=== PATIENT | female | born 1955 | race Caucasian/White ===

== ENCOUNTER 2017-03-06 00:55 | Observation (INO) | payer MEDICARE ==
[~2017-03-06] VITALS: Ht 172.7 cm; Wt 146.5 kg
[2017-03-06] VITALS (7 sets, daily range): BP systolic 116–180; BP diastolic 62–97
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
[2017-03-06 01:26] LABS: CALCIUM 9.5 mg/dL (8.5-10.1); CREATININE 1.6 mg/dL (0.6-1.0); GFR 32.9; INR 0.9 (0.8-1.1); PROTHROMBIN TIME PATIENT 11.9 SEC (11.7-14.0)
[2017-03-06] MEDS ORDERED: ASPIRIN CHEWABLE 81 MG TABLET. PO ONE (01:30)
[2017-03-06] MEDS ORDERED: NITROGLYCERIN OINT 1 GM PACKET. TP ONE (01:30)
[2017-03-06] MEDS ORDERED: LABETALOL 20 MG/4 ML DISP.SYRIN. IVP ONE (01:30)
[2017-03-06 01:31] LABS: MAGNESIUM 2.1 mg/dL (1.8-2.4)
[2017-03-06] MEDS ORDERED: FUROSEMIDE 40 MG/4 ML VIAL. ONE (01:49)
[2017-03-06 01:52] LABS: BASO # 0.1 x10^3/uL (0.0-0.2); BASO % 1 % (0-3); EOS % 4 % (0-3); HEMATOCRIT 41.3 % (36.0-47.0); HEMOGLOBIN 13.6 g/dL (12.0-15.5); LYMPH # 3.4 x10^3/uL (1.0-4.8); LYMPH % 41 % (24-48); MEAN CORPUSCULAR HEMOGLOBIN 30 pg (25-35); MEAN CORPUSCULAR HGB CONC 33 g/dL (31-37); MEAN CORPUSCULAR VOLUME 92 fL (79-100); MONO % 8 % (0-9); NEUT % 47 % (31-73); PLATELET COUNT 349 x10^3/uL (140-400); RED BLOOD COUNT 4.52 x10^6/uL (3.50-5.40); RED CELL DISTRIBUTION WIDTH 14.4 % (11.5-14.5); WHITE BLOOD COUNT 8.2 x10^3/uL (4.0-11.0)
[2017-03-06] MEDS ORDERED: NITROGLYCERIN SUBLINGUAL 0.4 MG BOTTLE OF 25. SL PRN (02:00)
[2017-03-06] MEDS ORDERED: FUROSEMIDE 40 MG/4 ML VIAL. IVP ONE (02:00)
[2017-03-06] MEDS ORDERED: ONDANSETRON PF 4 MG/2 ML VIAL. IV PRN (02:00)
[2017-03-06] MEDS ORDERED: LABETALOL 20 MG/4 ML DISP.SYRIN. IVP PRN (02:15)
--- NOTE | 2017-03-06 06:22 | EKG ---
[facility] [address] [place] [address] Test Date: 2017-03-06 Test Time: 01:03:23 Pat Name: TRACI JONES Department: Room: [facility] Gender: F Translator Interpreter: : 1955 Requested By: DAVID GONZALEZ Order Number: [id number] Reading MD: Mary Lewis Measurements Intervals [place] Rate: 102 P: 117 RI: 186 QRS: -73 QRSD: 136 T: 61 QT: 378 QTc: 497 Interpretive Statements SINUS TACHYCARDIA ABNORMAL LEFT AXIS DEVIATION LEFT ANTERIOR FASCICULAR BLOCK RIGHT BUNDLE BRANCH BLOCK BIFASCICULAR BLOCK RVH WITH REPOLARIZATION ABNORMALITY Electronically Signed On 03-07-2017 16:14:55 CDT by Mary Lewis
--- NOTE | 2017-03-06 07:36 | RAD ---
Chest radiograph 03/06/2017 2:59 AM Indication: Chest pain Comparison: None available Technique: Single portable upright frontal view of the chest is provided. Findings: Cardiomediastinal silhouette is enlarged. No pleural effusions or pneumothorax. Minimal prominence of pulmonary vasculature. The lungs are clear. Osseous structures are normal. Clips are noted projecting over the right breast. Impression: Enlarged cardiomediastinal silhouette with minimal prominence of the pulmonary vasculature may be seen in mild congestive heart failure.
--- NOTE | 2017-03-06 08:53 | PDOC1 ---
History and Physical Date of Admission Date of Admission DATE: 03/06/17 TIME: 08:50 Identification/Chief Complaint Chief Complaint chest pain Problems: Source Source: Chart review, Patient History of Present Illness History of Present Illness Ms. Luis, is a 61 year old female admit from ER with chest pain. Overnight mod mid sternal chest pain, "fullness" pain improved overnight, now she also has a headache, and thinks she has a UTI as well she has been living here for 6 weeks, waiting on the of a grandchild, lives in [place], has had > 5 UTI infections this year, has not seen a urologist, no change in weight, but HTN problems, and some worsening dyspnea and exercise intolerance Past Medical History Cardiovascular: HTN Pulmonary: No pertinent hx GI: No pertinent hx Hepatobiliary: No pertinent hx Psych: No pertinent hx Renal/: Chronic renal insuff (3 baseline) Endocrine: Hyperthyroidism, Hypothyroidism Dermatology: No pertinent hx Family History Family History: Coronary Artery Disease, Heart Disease, Hypertension Family History: Parent Social History Smoke: No ALCOHOL: none Drugs: None Current Problem List Problem List Problems Medical Problems: (1) Chest pain Status: Acute (2) CHF (congestive heart failure) Status: Acute (3) Malignant hypertension Status: Acute Problems: Current Medications Current Medications Current Medications Nitroglycerin (Nitro-Bid Oint) 1 inch 1X ONCE TP Last administered on 01:22; Start 03/06/17 at 01:30; Stop 03/06/17 at 01:31; Status DC Aspirin (Children'S Aspirin) 324 mg 1X ONCE PO Last administered on 03/06/17 01:21; Start 03/06/17 at 01:30; Stop 03/06/17 at 01:31; Status DC Labetalol HCl (Normodyne) 20 mg 1X ONCE IVP Last administered on 03/06/17 01: 23; Start 03/06/17 at 01:30; Stop 03/06/17 at 01:31; Status DC Furosemide (Lasix) 40 mg 1X ONCE IVP Last administered on 03/06/17 02:00; Start 03/06/17 at 02:00; Stop 03/06/17 at 02:01; Status DC Ondansetron HCl (Zofran) 4 mg PRN Q8HRS PRN IV NAUSEA/VOMITING Last administered on 03/06/17 01:57; Start 03/06/17 at 02:00; Stop 03/07/17 at 01:59 Nitroglycerin (Nitrostat) 0.4 mg PRN Q5MIN PRN SL CHEST PAIN Last administered on 03/06/17 02:00; Start 03/06/17 at 02:00; Stop 03/07/17 at 01:59 Furosemide (Lasix) 40 mg STK-MED ONCE .ROUTE ; Start 03/06/17 at 01:49; Stop at 01:50; Status DC Labetalol HCl (Normodyne) 20 mg PRN Q4HRS PRN IVP BLOOD PRESSURE; Start at 02:15 Allergies Allergies: Coded Allergies: Iodinated Contrast- Oral and IV Dye (Verified Allergy, Intermediate, ) morphine (Verified Allergy, Intermediate, 03/06/17) ROS General: YES: Fatigue, Malaise, No: Chills, Night Sweats, Appetite, Other PSYCHOLOGICAL ROS: No: Anxiety, Behavioral Disorder, Concentration difficultie , Decreased libido, Depression, Disorientation, Hallucinations, Hostility, Irritablity, Memory difficulties, Mood Swings, Obsessive thoughts, Physical abuse, Sexual abuse, Sleep disturbances, Suicidal ideation, Other Eyes: No Blurry vision, No Decreased vision, No Double vision, No Dry eyes, No Excessive tearing, No Eye Pain, No Itchy Eyes, No Loss of vision, No Photophobia , No Scotomata, No Uses contacts, No Uses glasses, No Other HEENT: No: Heacaches, Visual Changes, Hearing change, Nasal congestion, Nasal discharge, Oral lesions, Sinus pain, Sore Throat, Epistaxis, Sneezing, Snoring, Tinnitus, Vertigo, Vocal changes, Other Respiratory: No: Cough, Hemoptysis, Orthopnea, Pleuritic Pain, Shortness of breath, SOB with excertion, Sputum Changes, Stridor, Tachypnea, Wheezing, Other Cardiovascular: No Chest Pain, No Palpitations, No Orthopnea, No Paroxysmal Noc. Dyspnea, No Edema, No Lt Headedness, No Other Gastrointestinal: Yes Nausea, Yes Abdominal Pain, No Vomiting, No Diarrhea, No Constipation, No Melena, No Hematochezia, No Other Genitourinary: No Dysuria, No Frequency, No Incontinence, No Hematuria, No Retention, No Discharge, No Urgency, No Pain, No Flank Pain, No Other, No , No , No , No , No , No , No Musculoskeletal: No Gait Disturbance, No Joint Pain, No Joint Swelling, No Muscle Pain, No Muscular Weakness, No Pain In:, No Swelling In:, No Other Neurological: No Behavorial Changes, No Bowel/Bladder ControlChng, No Confusion , No Dizziness, No Gait Disturbance, No Headaches, No Impaired Coord/balance, No Memory Loss, No Numbness/Tingling, No Seizures, No Speech Problems, No Tremors, No Visual Changes, No Weakness, No Other Skin: Yes Dry Skin, No Eczema, No Hair Changes, No Lumps, No Mole Changes, No Mottling, No Nail Changes, No Pruritus, No Rash, No Skin Lesion Changes, No Other, No Acne Physical Exam General: Alert, Oriented X3, Cooperative HEENT: Atraumatic, PERRLA Lungs: Clear to auscultation Heart: S1S2, no murmurs Abdomen: Normal bowel sounds, Soft (obese, min tender, ) Rectal Exam: not examined Extremities: No clubbing, Normal pulses, Other (tr edema) Skin: No breakdown Neuro: Normal tone, Sensation intact Psych/Mental Status: Mental status NL, Mood NL Vitals Vitals Vital Signs Date Time Temp Pulse Resp B/P (MAP) Pulse Ox O2 Delivery O2 Flow Rate FiO2 03/06/17 07:00 98.4 95 18 116/62 (80) 95 Room Air 98.4 Labs Labs Laboratory Tests Test 03/06/17 01:10 White Blood Count 8.2 x10^3/uL (4.0-11.0) Red Blood Count 4.52 x10^6/uL (3.50-5.40) Hemoglobin 13.6 g/dL (12.0-15.5) Hematocrit 41.3 % (36.0-47.0) Mean Corpuscular Volume 92 fL (79-100) Mean Corpuscular Hemoglobin 30 pg (25-35) Mean Corpuscular Hemoglobin Concent 33 g/dL (31-37) Red Cell Distribution Width 14.4 % (11.5-14.5) Platelet Count 349 x10^3/uL (140-400) Neutrophils (%) (Auto) 47 % (31-73) Lymphocytes (%) (Auto) 41 % (24-48) Monocytes (%) (Auto) 8 % (0-9) Eosinophils (%) (Auto) 4 % (0-3) Basophils (%) (Auto) 1 % (0-3) Neutrophils # (Auto) 3.8 x10^3uL (1.8-7.7) Lymphocytes # (Auto) 3.4 x10^3/uL (1.0-4.8) Monocytes # (Auto) 0.6 x10^3/uL (0.0-1.1) Eosinophils # (Auto) 0.3 x10^3/uL (0.0-0.7) Basophils # (Auto) 0.1 x10^3/uL (0.0-0.2) Prothrombin Time 11.9 SEC (11.7-14.0) Prothromb Time International Ratio 0.9 (0.8-1.1) Activated Partial Thromboplast Time 23 SEC (24-38) D-Dimer (Puja) 0.54 ug/mlFEU (0.00-0.50) Sodium Level 140 mmol/L (136-145) Potassium Level 4.0 mmol/L (3.5-5.1) Chloride Level 101 mmol/L (98-107) Carbon Dioxide Level 29 mmol/L (21-32) Anion Gap 10 (6-14) Blood Urea Nitrogen 17 mg/dL (7-20) Creatinine 1.6 mg/dL (0.6-1.0) Estimated GFR (Cockcroft-Gault) 32.9 Glucose Level 115 mg/dL (70-99) Calcium Level 9.5 mg/dL (8.5-10.1) Magnesium Level 2.1 mg/dL (1.8-2.4) Creatine Kinase 49 U/L (26-192) Troponin I Quantitative < 0.017 ng/mL (0.000-0.055) CV-Oum-B-Type Natriuretic Peptide 2297 pg/mL (0-124) Lipase 191 U/L (73-393) Laboratory Tests Test 03/06/17 01:10 White Blood Count 8.2 x10^3/uL (4.0-11.0) Red Blood Count 4.52 x10^6/uL (3.50-5.40) Hemoglobin 13.6 g/dL (12.0-15.5) Hematocrit 41.3 % (36.0-47.0) Mean Corpuscular Volume 92 fL (79-100) Mean Corpuscular Hemoglobin 30 pg (25-35) Mean Corpuscular Hemoglobin Concent 33 g/dL (31-37) Red Cell Distribution Width 14.4 % (11.5-14.5) Platelet Count 349 x10^3/uL (140-400) Neutrophils (%) (Auto) 47 % (31-73) Lymphocytes (%) (Auto) 41 % (24-48) Monocytes (%) (Auto) 8 % (0-9) Eosinophils (%) (Auto) 4 % (0-3) Basophils (%) (Auto) 1 % (0-3) Neutrophils # (Auto) 3.8 x10^3uL (1.8-7.7) Lymphocytes # (Auto) 3.4 x10^3/uL (1.0-4.8) Monocytes # (Auto) 0.6 x10^3/uL (0.0-1.1) Eosinophils # (Auto) 0.3 x10^3/uL (0.0-0.7) Basophils # (Auto) 0.1 x10^3/uL (0.0-0.2) Prothrombin Time 11.9 SEC (11.7-14.0) Prothromb Time International Ratio 0.9 (0.8-1.1) Activated Partial Thromboplast Time 23 SEC (24-38) D-Dimer (Puja) 0.54 ug/mlFEU (0.00-0.50) Sodium Level 140 mmol/L (136-145) Potassium Level 4.0 mmol/L (3.5-5.1) Chloride Level 101 mmol/L (98-107) Carbon Dioxide Level 29 mmol/L (21-32) Anion Gap 10 (6-14) Blood Urea Nitrogen 17 mg/dL (7-20) Creatinine 1.6 mg/dL (0.6-1.0) Estimated GFR (Cockcroft-Gault) 32.9 Glucose Level 115 mg/dL (70-99) Calcium Level 9.5 mg/dL (8.5-10.1) Magnesium Level 2.1 mg/dL (1.8-2.4) Creatine Kinase 49 U/L (26-192) Troponin I Quantitative < 0.017 ng/mL (0.000-0.055) FA-Qzb-B-Type Natriuretic Peptide 2297 pg/mL (0-124) Lipase 191 U/L (73-393) VTE Prophylaxis Ordered VTE Prophylaxis Devices: No VTE Pharmacological Prophylaxi: Yes Assessment/Plan Assessment/Plan chest pain, angina, r/o ACS chronic htn, likely acute diastolic CHF< check echo, BP better than on admit morbid obesity, BMI 50 hypothyroid, verify dose with her pharmacy, she is unsure, CKD 3 or 4, consult renal, check UA, suspect proteinuria RR 18, Sa02 95% on RA admit JACKELINE LAWSON MD Mar 06, 2017 08:52
[2017-03-06] MEDS ORDERED: traMADol 50 MG TABLET PO PRN (09:15)
[2017-03-06] MEDS ORDERED: ACETAMINOPHEN 325 MG TABLET. PO PRN (09:15)
[2017-03-06] MEDS ORDERED: LOSA100T6 PO (09:41)
[2017-03-06] MEDS ORDERED: LEVO25TA4 PO (09:41)
[2017-03-06] MEDS ORDERED: ATOR10TA60 PO (09:41)
[2017-03-06] MEDS ORDERED: DILT240C66 PO (09:41)
[2017-03-06] MEDS ORDERED: DULO60CA6 PO (09:41)
[2017-03-06 09:44] LABS: CHOLESTEROL/HDL RATIO 5.9
[2017-03-06] MEDS: LEVOTHYROXINE 25 MCG TABLET. PO SCH ×2 (10:37→11:00)
[2017-03-06] MEDS: LOSARTAN POTASSIUM 50 MG TABLET. PO SCH (10:40)
[2017-03-06] MEDS: DULoxetine HCL 30 MG CAPSULE.DR PO SCH (10:41)
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
[2017-03-06] MEDS ORDERED: MAGNESIUM SULFATE 2GM 50 ML IV PRN (11:15)
--- NOTE | 2017-03-06 11:24 | PDOC2 ---
CONSULT Date of Consult Date of Consult DATE: 03/06/17 TIME: 11:16 Reason for Consult Reason for Consult: ^ed Creat Referring Physician Referring Physician: Dr Rudolph Identification/Chief Complaint Chief Complaint CP Problems: Source Source: Chart review, Patient History of Present Illness Reason for Visit: as dictated Past Medical History Cardiovascular: HTN, Hyperlipidemia Pulmonary: Other (EUGENIA) CENTRAL NERVOUS SYSTEM: Other (No pertinent history) GI: GERD Heme/Onc: Cancer (bilateral breast CA) Hepatobiliary: Cholelithiasis Psych: Anxiety Musculoskeletal: Osteoarthritis Rheumatologic: No pertinent hx Infectious disease: No pertinent hx ENT: No pertinent hx Renal/: Chronic renal insuff (CKD3) Endocrine: Hypothyroidism Dermatology: No pertinent hx Past Surgical History Past Surgical History: Cholecystectomy, Mastectomy (bilateral ), Tonsillectomy , Hysterectomy Family History Family History: Coronary Artery Disease (mother in her 50s and father at later age) Social History Social History: Parent No ALCOHOL: none Drugs: None Lives: Alone Current Problem List Problem List Problems Medical Problems: (1) Chest pain Status: Acute (2) CHF (congestive heart failure) Status: Acute (3) Malignant hypertension Status: Acute Current Medications Current Medications Current Medications Nitroglycerin (Nitro-Bid Oint) 1 inch 1X ONCE TP Last administered on 01:22; Start 03/06/17 at 01:30; Stop 03/06/17 at 01:31; Status DC Aspirin (Children'S Aspirin) 324 mg 1X ONCE PO Last administered on 03/06/17 01:21; Start 03/06/17 at 01:30; Stop 03/06/17 at 01:31; Status DC Labetalol HCl (Normodyne) 20 mg 1X ONCE IVP Last administered on 03/06/17 01: 23; Start 03/06/17 at 01:30; Stop 03/06/17 at 01:31; Status DC Furosemide (Lasix) 40 mg 1X ONCE IVP Last administered on 03/06/17 02:00; Start 03/06/17 at 02:00; Stop 03/06/17 at 02:01; Status DC Ondansetron HCl (Zofran) 4 mg PRN Q8HRS PRN IV NAUSEA/VOMITING Last administered on 03/06/17 01:57; Start 03/06/17 at 02:00; Stop 03/07/17 at 01:59 Nitroglycerin (Nitrostat) 0.4 mg PRN Q5MIN PRN SL CHEST PAIN Last administered on 03/06/17 02:00; Start 03/06/17 at 02:00; Stop 03/07/17 at 01:59 Furosemide (Lasix) 40 mg STK-MED ONCE .ROUTE ; Start 03/06/17 at 01:49; Stop at 01:50; Status DC Labetalol HCl (Normodyne) 20 mg PRN Q4HRS PRN IVP BLOOD PRESSURE; Start at 02:15 Diltiazem HCl (Cardizem 24hr Cd) 240 mg DAILY PO ; Start 03/06/17 at 10:00 Tramadol HCl (Ultram) 50 mg PRN Q6HRS PRN PO PAIN; Start 03/06/17 at 09:15 Acetaminophen (Tylenol) 650 mg PRN Q6HRS PRN PO pain Last administered on 10:37; Start 03/06/17 at 09:15 Levothyroxine Sodium (Synthroid) 25 mcg DAILY07 PO ; Start 03/06/17 at 11:00 Atorvastatin Calcium (Lipitor) 10 mg HS PO ; Start 03/06/17 at 21:00; Stop 03/06 at 21:00; Status DC Diltiazem HCl (Cardizem 24hr Cd) 240 mg DAILY PO Last administered on 10:38; Start 03/06/17 at 10:30 Levothyroxine Sodium (Synthroid) 25 mcg DAILY06 PO Last administered on 10:37; Start 03/06/17 at 10:30 Duloxetine HCl (Cymbalta) 60 mg DAILY PO Last administered on 03/06/17 10:41; Start 03/06/17 at 10:30 Losartan Potassium (Cozaar) 100 mg DAILY PO Last administered on 03/06/17 10: 40; Start 03/06/17 at 10:30 Atorvastatin Calcium (Lipitor) 40 mg QHS PO ; Start 03/06/17 at 21:00 Active Scripts Active Reported Cartia Xt (Diltiazem Hcl) 240 Mg Cap.er.24h 240 Mg PO Losartan Potassium 100 Mg Tablet 100 Mg PO DAILY Cymbalta (Duloxetine Hcl) 60 Mg Capsule.dr 60 Mg PO DAILY Atorvastatin Calcium 10 Mg Tablet 10 Mg PO HS Levothyroxine Sodium 25 Mcg Tablet 25 Mcg PO DAILY Allergies Allergies: Coded Allergies: Iodinated Contrast- Oral and IV Dye (Verified Allergy, Intermediate, ) morphine (Verified Allergy, Intermediate, 03/06/17) ROS Review of System GEN: no Fevers no Chills EYES: no Visual Complaints ENT: no EN Drainage no Hearing deficiets CVS: no Orthopnea + CP RESP: no SOB no CID GI: no Nausea no Vomiting : no Dysuria no Urgency HEME: no easy bruising no Palp Ly Nodes NEURO no Focal Weakness no Sz PSYCH: no Suicidal Ideation no Depression SKIN: o Rashes ENDO: no Polyuria or Polydipsia on Hot/Cold Intolerance MU SK: Ch Arthraigia no Myalgia Physical Exam Physical Exam General Appearance: Awake Alert Oriented x 3 In no Distress; Obese Eyes: VIsion Unchanged Conjunctiva Normal EN: No EN Drainage Mucous Memb. moist Neck: no JVD no JVP Supple no Thyromegaly; THick Neck CVS: S1 S2 no Murmur No Gallop No Rub no Edema Resp: no Rales no Rhonchi no Acc. Muscle use GI: BAS +ve NO Bruit Non Tender Non Distended - morbidly obese : no CVA tenderness; no Suprapubic Tenderness SKIN: no Rashes Breast Exam deferred Mu.Sk: Adequate ROM no Muscle Atrophy Heme: Unable to palpate Obvious LAD no Splenomegaly NEURO: Good Strength and Tone Cranial Nerves II - XII grossly intact Psych: not Depressed no Active hallucination Vital Signs Vital Signs Date Time Temp Pulse Resp B/P (MAP) Pulse Ox O2 Delivery O2 Flow Rate FiO2 03/06/17 10:40 95 154/73 03/06/17 08:10 Room Air 03/06/17 07:00 98.4 18 95 98.4 Assessment & Plan CKD III - Known HTNsive /NS: She does not know her Baseline Creat though - Current FLuid and E-lyte status does not necessitate emergent need for Dialysis. Will re-evaluate for Dialysis in am Malignant HTN: (suspect becuase she ran out of her BP meds) Current BP meds reviewed. See orders for changes. CP - ? She will need IVF and NAC prior to [facility] if felt to require same. ^TSH - defer to Primary team Discussed Plan of Care and prognosis etc. at length with pt Labs Labs Laboratory Tests Test 03/06/17 01:10 White Blood Count 8.2 x10^3/uL (4.0-11.0) Red Blood Count 4.52 x10^6/uL (3.50-5.40) Hemoglobin 13.6 g/dL (12.0-15.5) Hematocrit 41.3 % (36.0-47.0) Mean Corpuscular Volume 92 fL (79-100) Mean Corpuscular Hemoglobin 30 pg (25-35) Mean Corpuscular Hemoglobin Concent 33 g/dL (31-37) Red Cell Distribution Width 14.4 % (11.5-14.5) Platelet Count 349 x10^3/uL (140-400) Neutrophils (%) (Auto) 47 % (31-73) Lymphocytes (%) (Auto) 41 % (24-48) Monocytes (%) (Auto) 8 % (0-9) Eosinophils (%) (Auto) 4 % (0-3) Basophils (%) (Auto) 1 % (0-3) Neutrophils # (Auto) 3.8 x10^3uL (1.8-7.7) Lymphocytes # (Auto) 3.4 x10^3/uL (1.0-4.8) Monocytes # (Auto) 0.6 x10^3/uL (0.0-1.1) Eosinophils # (Auto) 0.3 x10^3/uL (0.0-0.7) Basophils # (Auto) 0.1 x10^3/uL (0.0-0.2) Prothrombin Time 11.9 SEC (11.7-14.0) Prothromb Time International Ratio 0.9 (0.8-1.1) Activated Partial Thromboplast Time 23 SEC (24-38) D-Dimer (Puja) 0.54 ug/mlFEU (0.00-0.50) Sodium Level 140 mmol/L (136-145) Potassium Level 4.0 mmol/L (3.5-5.1) Chloride Level 101 mmol/L (98-107) Carbon Dioxide Level 29 mmol/L (21-32) Anion Gap 10 (6-14) Blood Urea Nitrogen 17 mg/dL (7-20) Creatinine 1.6 mg/dL (0.6-1.0) Estimated GFR (Cockcroft-Gault) 32.9 Glucose Level 115 mg/dL (70-99) Calcium Level 9.5 mg/dL (8.5-10.1) Magnesium Level 2.1 mg/dL (1.8-2.4) Creatine Kinase 49 U/L (26-192) Troponin I Quantitative < 0.017 ng/mL (0.000-0.055) ZO-Ztt-J-Type Natriuretic Peptide 2297 pg/mL (0-124) Triglycerides Level 292 mg/dL (0-150) Cholesterol Level 275 mg/dL (0-200) LDL Cholesterol, Calculated 170 mg/dL (0-100) VLDL Cholesterol, Calculated 58 mg/dL (0-40) Non-HDL Cholesterol Calculated 228 mg/dL (0-129) HDL Cholesterol 47 mg/dL (40-60) Cholesterol/HDL Ratio 5.9 Lipase 191 U/L (73-393) Thyroid Stimulating Hormone (TSH) 10.375 uIU/mL (0.358-3.74) Laboratory Tests Test 03/06/17 01:10 White Blood Count 8.2 x10^3/uL (4.0-11.0) Red Blood Count 4.52 x10^6/uL (3.50-5.40) Hemoglobin 13.6 g/dL (12.0-15.5) Hematocrit 41.3 % (36.0-47.0) Mean Corpuscular Volume 92 fL (79-100) Mean Corpuscular Hemoglobin 30 pg (25-35) Mean Corpuscular Hemoglobin Concent 33 g/dL (31-37) Red Cell Distribution Width 14.4 % (11.5-14.5) Platelet Count 349 x10^3/uL (140-400) Neutrophils (%) (Auto) 47 % (31-73) Lymphocytes (%) (Auto) 41 % (24-48) Monocytes (%) (Auto) 8 % (0-9) Eosinophils (%) (Auto) 4 % (0-3) Basophils (%) (Auto) 1 % (0-3) Neutrophils # (Auto) 3.8 x10^3uL (1.8-7.7) Lymphocytes # (Auto) 3.4 x10^3/uL (1.0-4.8) Monocytes # (Auto) 0.6 x10^3/uL (0.0-1.1) Eosinophils # (Auto) 0.3 x10^3/uL (0.0-0.7) Basophils # (Auto) 0.1 x10^3/uL (0.0-0.2) Prothrombin Time 11.9 SEC (11.7-14.0) Prothromb Time International Ratio 0.9 (0.8-1.1) Activated Partial Thromboplast Time 23 SEC (24-38) D-Dimer (Puja) 0.54 ug/mlFEU (0.00-0.50) Sodium Level 140 mmol/L (136-145) Potassium Level 4.0 mmol/L (3.5-5.1) Chloride Level 101 mmol/L (98-107) Carbon Dioxide Level 29 mmol/L (21-32) Anion Gap 10 (6-14) Blood Urea Nitrogen 17 mg/dL (7-20) Creatinine 1.6 mg/dL (0.6-1.0) Estimated GFR (Cockcroft-Gault) 32.9 Glucose Level 115 mg/dL (70-99) Calcium Level 9.5 mg/dL (8.5-10.1) Magnesium Level 2.1 mg/dL (1.8-2.4) Creatine Kinase 49 U/L (26-192) Troponin I Quantitative < 0.017 ng/mL (0.000-0.055) SI-Rxb-A-Type Natriuretic Peptide 2297 pg/mL (0-124) Triglycerides Level 292 mg/dL (0-150) Cholesterol Level 275 mg/dL (0-200) LDL Cholesterol, Calculated 170 mg/dL (0-100) VLDL Cholesterol, Calculated 58 mg/dL (0-40) Non-HDL Cholesterol Calculated 228 mg/dL (0-129) HDL Cholesterol 47 mg/dL (40-60) Cholesterol/HDL Ratio 5.9 Lipase 191 U/L (73-393) Thyroid Stimulating Hormone (TSH) 10.375 uIU/mL (0.358-3.74) Images Images Impression: Enlarged cardiomediastinal silhouette with minimal prominence of the pulmonary vasculature may be seen in mild congestive heart failure. SONDRA HARDEN MD Mar 06, 2017 11:24
[2017-03-06 11:36] LABS: ALBUMIN 3.1 g/dL (3.4-5.0); DIRECT BILIRUBIN 0.1 mg/dL (0.0-0.2); TOTAL BILIRUBIN 0.4 mg/dL (0.2-1.0); TOTAL PROTEIN 6.3 g/dL (6.4-8.2)
--- NOTE | 2017-03-06 12:56 | CARD ---
APPROVED REPORT EXAM: Two-dimensional and M-mode echocardiogram with Doppler and color Doppler. Other Information Quality : Good INDICATION Congestive Heart Failure 2D DIMENSIONS RVDd2.1 (2.9-3.5cm)Left Atrium(2D)3.5 (1.6-4.0cm) IVSd1.7 (0.7-1.1cm)Aortic Root(2D)2.4 (2.0-3.7cm) LVDd5.6 (3.9-5.9cm)LVOT Diameter2.1 (1.8-2.4cm) PWd1.1 (0.7-1.1cm)LVDs3.2 (2.5-4.0cm) FS (%) 30.0 %SV112.0 ml LVEF(%)60.0 (>50%) Aortic Valve AoV Peak Jamarcus.143.4cm/sAoV VTI29.4cm AO Peak GR.8.2mmHgLVOT Peak Jamarcus.101.4cm/s LVOT VTI 20.37cmAO Mean GR.4mmHg TORIE (VMAX)2.41fj0KNO (VTI)2.48cm2 Mitral Valve MV E Uzscdmva06.7cm/sMV DECEL AIFY352iu MV A Xhenjiiq497.6cm/sMV ULD99xv E/A Ratio0.8MVA (PHT)5.84cm2 TDI E/Medial E'17.5 Pulmonary Vein S1 Mhgdchkv07.2cm/sD2 Qtwkhrib40.4cm/s LEFT VENTRICLE The left ventricle is normal size. There is moderate asymmetric septal left ventricular hypertrophy. The left ventricular systolic function is normal. The Ejection Fraction is 55-60%. There is normal LV segmental wall motion. Transmitral Doppler flow pattern is Grade I-abnormal relaxation pattern. RIGHT VENTRICLE The right ventricle is normal size. The right ventricular systolic function is normal. ATRIA The left atrium size is normal. The right atrium size is normal. The interatrial septum is intact wit h no evidence for an atrial septal defect or patent foramen ovale as noted on 2-D or Doppler imaging. AORTIC VALVE The aortic valve is calcified but opens well. Doppler and Color Flow revealed no significant aortic r egurgitation. There is no significant aortic valvular stenosis. MITRAL VALVE The mitral valve is calcified but opens well. There is no evidence of mitral valve prolapse. There is no mitral valve stenosis. Doppler and Color-flow revealed mild mitral regurgitation. TRICUSPID VALVE The tricuspid valve is normal in structure and function. Doppler and Color Flow revealed no tricuspid valve regurgitation noted. There is no tricuspid valve stenosis. PULMONIC VALVE The pulmonary valve is normal in structure and function. Doppler and Color Flow revealed trace to mil d pulmonic valvular regurgitation. There is no pulmonic valvular stenosis. GREAT VESSELS The aortic root is normal in size. The ascending aorta is normal in size. The IVC is normal in size a nd collapses >50% with inspiration. PERICARDIAL EFFUSION There is no evidence of significant pericardial effusion. Critical Notification Critical Value: No <Conclusion> The left ventricular systolic function is normal. The Ejection Fraction is 55-60%. There is normal LV segmental wall motion. Transmitral Doppler flow pattern is Grade I-abnormal relaxation pattern. Doppler and Color-flow revealed mild mitral regurgitation. There is no evidence of significant pericardial effusion.
--- NOTE | 2017-03-06 15:07 | RAD ---
Renal ultrasound, 03/06/2017: History: Acute and chronic renal insufficiency The right kidney measures 10.9 cm in length. The parenchymal echogenicity is within normal limits. There is no evidence of hydronephrosis or a renal mass. The left kidney was less clearly delineated but appears to be of similar size. There is no evidence of hydronephrosis. The urinary bladder is collapsed and not adequately visualized. IMPRESSION: No significant renal abnormality is detected.
--- NOTE | 2017-03-06 15:25 | CONS ---
DATE OF CONSULTATION: PRIMARY PHYSICIAN: Dr. Brambila/Dr. Rudolph. REASON FOR CONSULTATION: Elevated creatinine. HISTORY OF PRESENT ILLNESS: The patient is a 61-year-old female from the [facility] in [place]. She is here in [place] to assist her son and his fiancee with delivery of the baby; however, the baby was delayed and she ran out of her medications while she was here. She has requested refills for the same and she presented to the ER with significant chest pain and also noticed that her blood pressure was running pretty high. She recently finished antibiotics for her UTI. In this setting, she was noted to have a creatinine of 1.6 and we were asked to see her for further evaluation. She was also noted to be significantly dyslipidemic, as well as was noted to have a TSH of 10.37. For rest of the details, please see electronic records. SONDRA HARDEN MD DR: ALLEY/daria JOB#: [id number] / [id number]
[2017-03-06] MEDS ORDERED: ATORVASTATIN CALCIUM 40 MG TABLET. PO SCH (21:00)
[2017-03-06] MEDS ORDERED: ATORVASTATIN CALCIUM 10 MG TABLET. PO SCH (21:00)
--- NOTE | 2017-03-06 23:57 | ACF ---
Admission Forms Criteria HYPERTENSION Clinical Indications for Admission to Inpatient Care ( Place "X" for any and all applicable criteria): Admission is indicated for 1 or more of the following(1)(2)(3)(4)(5)(6)(7)(8)(9) (10): [ ]I. Hypertensive emergency, with evidence of acute and progressing target organ disease as indicated by 1 or more of the following: [ ]a) Hypertensive encephalopathy (eg, confusion, altered mental status) [ ]b) Cerebral infarction [ ]c) Intracranial hemorrhage [ ]d) Myocardial ischemia or infarction [ ]e) Heart failure (eg. Pulmonary edema) [ ]f) Aortic dissection [ ]g) Increased creatinine (new) with reduction of more than 50% in estimated glomerular filtration rate from baseline [ ]h) Seizure [ ]i) Papilledema [ ]j) Retinal hemorrhage [ ]k) Microangiopathic hemolytic anemia [ ]l) Other significant finding secondary to hypertension [ ]II. Adrenergic or sympathomimetic crisis (eg, severe hypertension due to pheochromocytoma crisis, cocaine or amphetamine intoxication, or clonidine withdrawal) [X]III. Severe hypertension (SBP greater than 180 mmHg or DBP greater than 110 mmHg or greater than the 95th percentile for age, gender, and height in pediatric patients) that cannot be controlled (eg, to SBP less than 160 mmHg and DBP less than 100 mmHg in adults) by treatment with oral medication in emergency department or observation care Extended stay beyond goal length of stay may be needed for(11)(12)(13): [ ]a) Persistent hypertensive encephalopathy [ ]b) Continuation of pulmonary edema [ ]c) Recurring or persistent severe hypertension [ ]d) Target organ damage (eg, angina, stroke, aortic dissection) The original [employer] content created by [employer] has been revised. The portions of the content which have been revised are identified through the use of italic text, and [facility] [employer] has neither reviewed nor approved the modified material. All other unmodified content is copyright [employer]. Please see references footnoted in the original [facility] edition 2014 Admission Criteria Met?: Yes PAPI BHATIA Mar 06, 2017 23:57
[2017-03-07 03:05] VITALS: BP 144/71
[2017-03-07 05:57] LABS: ALBUMIN 2.9 g/dL (3.4-5.0); CALCIUM 8.5 mg/dL (8.5-10.1); CREATININE 1.6 mg/dL (0.6-1.0); GFR 32.9; PHOSPHORUS 4.3 mg/dL (2.6-4.7); POTASSIUM 3.6 mmol/L (3.5-5.1)
[2017-03-07] MEDS: LEVOTHYROXINE 25 MCG TABLET. PO SCH ×2 (06:00→10:13)
[2017-03-07 07:57] VITALS: BP 138/65
[2017-03-07] MEDS ORDERED: REGADENOSON 0.4 MG/5 ML DISP.SYRIN. IV ONE (09:00)
[2017-03-07] MEDS: DULoxetine HCL 30 MG CAPSULE.DR PO SCH (10:12)
[2017-03-07] MEDS: LOSARTAN POTASSIUM 50 MG TABLET. PO SCH (10:12)
[2017-03-07 10:23] VITALS: BP 158/71
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
--- NOTE | 2017-03-07 12:46 | RAD ---
APPROVED REPORT Test Type: Pharmacological Stress Nurse/Tech: jeovanny gay Test Indications: chest pain Cardiac History: HTN, SEE EHR Medications: SEE EHR Medical History: ASTHMA, COPD, CKD III, SEE EHR Resting ECG: SR WITH BBB Resting Heart Rate: 85 bpm Resting Blood Pressure: 142/69mmHg Pretest Chest Pain: No chest pain Nurse/Tech Notes NO RESPIRATORY DISTRESS, NO CHEST PAIN AT THIS TIME. Consent: The procedure was explained to the patient in lay terms. Informed consent was witnessed. Gil eout was entered into [employer]. History and Stress Test performed by JOAQUIN Desai, SANGEETA (R) (N) Pharm. Details Pharmacologic stress testing was performed using 0.4mg per 5ml of regadenoson given intravenously ove r 7-10 seconds. Stress Symptoms HEADACHE POST EXERCISE Reason for Termination: Infusion complete Max HR: 102 bpm Max Blood Pressure: 156/62mmHg Chest Pain: No. Arrhythmia: No. ST Change: No. INTERPRETATION Stress EKG Conclusion: Baseline EKG showed sinus rhythm. No ischemic changes at peak stress. No arr hythmias. Imaging Protocol IMAGE PROTOCOL: Rest Tc-99m/stress Tc-99m 2 days Rest: Stress: Viability: Radiopharm.Tc99m LfcnaztmeJm60o Sestamibi Dose33.4mCi 32mCi Img Date 03/06/2017 03/07/2017 Inj-Img [id number]. 30min. Rest Admin Site:IV - Left AntecubitalAdministrator:JNENIFER Stapleton Stress Admin Site: IV - Left AntecubitalAdministrator: JOAQUIN Desai, SANGEETA (R)(N) STRESS DATA End Diast. Vol.141.0mlAv. Heart Rate91.0bpm End Syst. Vol.52.0mlCO Index BSA0.0L/min Myocardial Tdvf215.0gEject. Wezwryfu15.0% Stress Rates Pk. Fill Rate3.50EDV/secLVtime Pk. Fill 151.47msec Pk. Empty Rate3.83ESV/secLVtime Pk. Ykgno818.33msec 07/22 Pk. Fill1.84EDV/sec Stress Scores Regional WT0.00Summed WT4.00 Regional WM0.00Summed WM7.00 Study quality was good. Left Ventricular size was Normal at Rest and Stress. Lung uptake was Normal. Left Ventricular ejection fraction is 63%. The rest and stress images show normal perfusion, normal contraction and thickening. LV Perf. Quant 17 Seg. SSS3.00 17 Seg. SRS4.00 17 Seg. SDS3.00 Stress Defect Extent (% LAD)5.60Rest Defect Extent (% LAD)17.50Rev. Defect Extent (% LAD)5.60 Stress Defect Extent (% LCX) 7.50Rest Defect Extent (% LCX)8.80Rev. Defect Extent (% LCX)5.00 Stress Defect Extent (% RCA)1.10Rest Defect Extent (% RCA)0.00Rev. Defect Extent (% RCA)1.10 Stress Defect Extent (% JESSIKA)5.20Rest Defect Extent (% JESSIKA)12.20Rev. Defect Extent (% JESSIKA)3.00 Conclusion 1. Regadenoson cardioisotope stress test did not show any evidence of ischemia or infarct. 2. Normal left ventricular systolic function with ejection fraction calculated at 63%. 3. Low risk for cardiac events.
[2017-03-07] MEDS ORDERED: LEVO50TA PO (13:11)
[2017-03-07] MEDS ORDERED: ATOR10TA60 PO (13:16)
[2017-03-07] MEDS ORDERED: DILT240C66 PO (13:16)
[2017-03-07] MEDS ORDERED: DULO60CA6 PO (13:16)
[2017-03-07] MEDS ORDERED: LOSA100T6 PO (13:16)
--- NOTE | 2017-03-07 13:32 | PDOC ---
SUBJECTIVE ROS CKD and HTN Dogin and feeling better today CVS: no Orthopnea, no CP RESP: no SOB, no CID GI: no Nausea, no Vomiting : no Dysuria, no Urgency OBJECTIVE Vital Signs Vital Signs Date Time Temp Pulse Resp B/P (MAP) Pulse Ox O2 Delivery O2 Flow Rate FiO2 03/07/17 10:23 97.6 91 19 158/71 (100) 95 Room Air 97.6 I & 0 Intake and Output 03/07/17 07:00 Intake Total 1360 ml Balance 1360 ml Intake Oral 1360 ml # Voids 3 PHYSICAL EXAM Physical Exam General Appearance: Awake Alert Oriented x 3 In no Distress; Obese Eyes: VIsion Unchanged Conjunctiva Normal EN: No EN Drainage Mucous Memb. moist Neck: no JVD no JVP Supple no Thyromegaly; THick Neck CVS: S1 S2 no Murmur No Gallop No Rub no Edema Resp: no Rales no Rhonchi no Acc. Muscle use GI: BAS +ve NO Bruit Non Tender Non Distended - morbidly obese : no CVA tenderness; no Suprapubic Tenderness Assessment & Plan CKD III - Known HTNsive /NS: She does not know her Baseline Creat though - Current FLuid and E-lyte status does not necessitate emergent need for Dialysis. Will re-evaluate for Dialysis in am Malignant HTN: (suspect becuase she ran out of her BP meds) Current BP meds reviewed. See orders for changes. defer to Cardiology to optimize for CP CP - ? She will need IVF and NAC prior to LHC if felt to require same. ^TSH - defer to Primary team Discussed Plan of Care and prognosis etc. at length with pt COMMENT/RELEVANT DATA Meds Current Medications Medications (Trade) Dose Ordered Sig/Ricci Start Time Stop Time Status Last Admin Dose Admin Acetaminophen (Tylenol) 650 mg PRN Q6HRS PRN 03/06/17 09:15 03/06/17 10:37 650 MG Aspirin (Children'S Aspirin) 324 mg 1X ONCE 03/06/17 01:30 03/06/17 01:31 DC 03/06/17 01:21 324 MG Atorvastatin Calcium (Lipitor) 40 mg QHS 03/06/17 21:00 03/06/17 20:29 40 MG Diltiazem HCl (Cardizem 24hr Cd) 240 mg DAILY 03/06/17 10:30 03/06/17 11:32 DC 03/06/17 10:38 240 MG Duloxetine HCl (Cymbalta) 60 mg DAILY 03/06/17 10:30 03/07/17 10:12 60 MG Furosemide (Lasix) 40 mg STK-MED ONCE 03/06/17 01:49 03/06/17 01:50 DC Labetalol HCl (Normodyne) 20 mg PRN Q4HRS PRN 03/06/17 02:15 Levothyroxine Sodium (Synthroid) 25 mcg DAILY06 03/06/17 10:30 03/06/17 10:37 25 MCG Losartan Potassium (Cozaar) 100 mg DAILY 03/06/17 10:30 03/07/17 10:12 100 MG Magnesium Sulfate/ Dextrose 50 ml @ 25 mls/hr PRN DAILY PRN 03/06/17 11:15 Nitroglycerin (Nitro-Bid Oint) 1 inch 1X ONCE 03/06/17 01:30 03/06/17 01:31 DC 03/06/17 01:22 1 INCH Nitroglycerin (Nitrostat) 0.4 mg PRN Q5MIN PRN 03/06/17 02:00 03/07/17 01:59 DC 03/06/17 02:00 0.4 MG Ondansetron HCl (Zofran) 4 mg PRN Q8HRS PRN 03/06/17 02:00 03/07/17 01:59 DC 03/06/17 01:57 4 MG Regadenoson (Lexiscan) 0.4 mg 1X ONCE 03/07/17 09:00 03/07/17 09:01 DC 03/07/17 09:27 0.4 MG Tramadol HCl (Ultram) 50 mg PRN Q6HRS PRN 03/06/17 09:15 Lab Laboratory Tests Test 03/07/17 05:00 Hemoglobin 11.5 g/dL (12.0-15.5) Sodium Level 142 mmol/L (136-145) Potassium Level 3.6 mmol/L (3.5-5.1) Chloride Level 103 mmol/L (98-107) Carbon Dioxide Level 31 mmol/L (21-32) Anion Gap 8 (6-14) Blood Urea Nitrogen 19 mg/dL (7-20) Creatinine 1.6 mg/dL (0.6-1.0) Estimated GFR (Cockcroft-Gault) 32.9 Glucose Level 103 mg/dL (70-99) Calcium Level 8.5 mg/dL (8.5-10.1) Phosphorus Level 4.3 mg/dL (2.6-4.7) Magnesium Level 2.1 mg/dL (1.8-2.4) Albumin 2.9 g/dL (3.4-5.0) SONDRA HARDEN MD Mar 07, 2017 13:32
--- NOTE | 2017-03-07 14:22 | PDOC3 ---
Discharge Summary Visit Information Date of Admission: Mar 06, 2017 Date of Discharge: Mar 07, 2017 Admitting Diagnosis: angina Final Diagnosis chest pain, angina, stable chronic htn, acute diastolic CHF morbid obesity, BMI 49 hypothyroid, poor control CKD 3 or 4, Problems Medical Problems: (1) Chest pain Status: Acute (2) CHF (congestive heart failure) Status: Acute (3) Malignant hypertension Status: Acute Brief Hospital Course Allergies Allergies Coded Allergies Type Severity Reaction Last Updated Verified Iodinated Contrast- Oral and IV Dye Allergy Intermediate 03/06/17 Yes morphine Allergy Intermediate 03/06/17 Yes Vital Signs Vital Signs Date Time Temp Pulse Resp B/P (MAP) Pulse Ox O2 Delivery O2 Flow Rate FiO2 03/07/17 10:23 97.6 91 19 158/71 (100) 95 Room Air 97.6 Lab Results Laboratory Tests Test 03/06/17 01:10 03/06/17 11:05 03/07/17 05:00 White Blood Count 8.2 x10^3/uL (4.0-11.0) Red Blood Count 4.52 x10^6/uL (3.50-5.40) Hemoglobin 13.6 g/dL (12.0-15.5) 11.5 g/dL (12.0-15.5) Hematocrit 41.3 % (36.0-47.0) Mean Corpuscular Volume 92 fL (79-100) Mean Corpuscular Hemoglobin 30 pg (25-35) Mean Corpuscular Hemoglobin Concent 33 g/dL (31-37) Red Cell Distribution Width 14.4 % (11.5-14.5) Platelet Count 349 x10^3/uL (140-400) Neutrophils (%) (Auto) 47 % (31-73) Lymphocytes (%) (Auto) 41 % (24-48) Monocytes (%) (Auto) 8 % (0-9) Eosinophils (%) (Auto) 4 % (0-3) Basophils (%) (Auto) 1 % (0-3) Neutrophils # (Auto) 3.8 x10^3uL (1.8-7.7) Lymphocytes # (Auto) 3.4 x10^3/uL (1.0-4.8) Monocytes # (Auto) 0.6 x10^3/uL (0.0-1.1) Eosinophils # (Auto) 0.3 x10^3/uL (0.0-0.7) Basophils # (Auto) 0.1 x10^3/uL (0.0-0.2) Prothrombin Time 11.9 SEC (11.7-14.0) Prothromb Time International Ratio 0.9 (0.8-1.1) Activated Partial Thromboplast Time 23 SEC (24-38) D-Dimer (Puja) 0.54 ug/mlFEU (0.00-0.50) Sodium Level 140 mmol/L (136-145) 142 mmol/L (136-145) Potassium Level 4.0 mmol/L (3.5-5.1) 3.6 mmol/L (3.5-5.1) Chloride Level 101 mmol/L (98-107) 103 mmol/L (98-107) Carbon Dioxide Level 29 mmol/L (21-32) 31 mmol/L (21-32) Anion Gap 10 (6-14) 8 (6-14) Blood Urea Nitrogen 17 mg/dL (7-20) 19 mg/dL (7-20) Creatinine 1.6 mg/dL (0.6-1.0) 1.6 mg/dL (0.6-1.0) Estimated GFR (Cockcroft-Gault) 32.9 32.9 Glucose Level 115 mg/dL (70-99) 103 mg/dL (70-99) Calcium Level 9.5 mg/dL (8.5-10.1) 8.5 mg/dL (8.5-10.1) Magnesium Level 2.1 mg/dL (1.8-2.4) 2.1 mg/dL (1.8-2.4) Creatine Kinase 49 U/L (26-192) Troponin I Quantitative < 0.017 ng/mL (0.000-0.055) < 0.017 ng/mL (0.000-0.055) TI-Jog-B-Type Natriuretic Peptide 2297 pg/mL (0-124) Triglycerides Level 292 mg/dL (0-150) Cholesterol Level 275 mg/dL (0-200) LDL Cholesterol, Calculated 170 mg/dL (0-100) VLDL Cholesterol, Calculated 58 mg/dL (0-40) Non-HDL Cholesterol Calculated 228 mg/dL (0-129) HDL Cholesterol 47 mg/dL (40-60) Cholesterol/HDL Ratio 5.9 Lipase 191 U/L (73-393) Thyroid Stimulating Hormone (TSH) 10.375 uIU/mL (0.358-3.74) Total Bilirubin 0.4 mg/dL (0.2-1.0) Direct Bilirubin 0.1 mg/dL (0.0-0.2) Aspartate Amino Transf (AST/SGOT) 16 U/L (15-37) Alanine Aminotransferase (ALT/SGPT) 23 U/L (14-59) Alkaline Phosphatase 92 U/L (46-116) Total Protein 6.3 g/dL (6.4-8.2) Albumin 3.1 g/dL (3.4-5.0) 2.9 g/dL (3.4-5.0) Phosphorus Level 4.3 mg/dL (2.6-4.7) Laboratory Tests Test 03/07/17 05:00 Hemoglobin 11.5 g/dL (12.0-15.5) Sodium Level 142 mmol/L (136-145) Potassium Level 3.6 mmol/L (3.5-5.1) Chloride Level 103 mmol/L (98-107) Carbon Dioxide Level 31 mmol/L (21-32) Anion Gap 8 (6-14) Blood Urea Nitrogen 19 mg/dL (7-20) Creatinine 1.6 mg/dL (0.6-1.0) Estimated GFR (Cockcroft-Gault) 32.9 Glucose Level 103 mg/dL (70-99) Calcium Level 8.5 mg/dL (8.5-10.1) Phosphorus Level 4.3 mg/dL (2.6-4.7) Magnesium Level 2.1 mg/dL (1.8-2.4) Albumin 2.9 g/dL (3.4-5.0) Brief Hospital Course Ms. Luis is a 61 old female, amdit for chestpain, Trop neg, lipids not at goal, Echo OK, MPI stress low prob. Cr 1.6, renal US neg, renal consjult Malignant HTN, she was out of her BP meds, restarted and she felt well f/u PCP in [facility] renal US OK Discharge Information Condition at Discharge: Improved Follow Up: Weeks Disposition/Orders: D/C to Home Scheduled Atorvastatin Calcium (Atorvastatin Calcium), 10 MG PO HS Diltiazem Hcl (Cartia Xt), 240 MG PO DAILY Duloxetine Hcl (Cymbalta), 60 MG PO DAILY Levothyroxine Sodium (Synthroid), 1 TAB PO DAILY Losartan Potassium (Losartan Potassium), 100 MG PO DAILY Discontinued Medications Levothyroxine Sodium (Levothyroxine Sodium), 25 MCG PO DAILY, (Reported) Patient Instructions Patient Instructions > 30min ECHO The left ventricular systolic function is normal. The Ejection Fraction is 55-60%. There is normal LV segmental wall motion. Transmitral Doppler flow pattern is Grade I-abnormal relaxation pattern. Doppler and Color-flow revealed mild mitral regurgitation. There is no evidence of significant pericardial effusio JACKELINE LAWSON MD Mar 07, 2017 14:22
== END 2017-03-07 16:11 | disposition home or self-care (01) ==
LOC: ER 00:55 → 2 SOUTH 01:45
PROVIDERS: ADMIT Internal Medicine; ATTEND Internal Medicine
DX: I20.9 Angina pectoris, unspecified (principal); I13.0 Hypertensive heart and chronic kidney disease with heart failure and stage 1 through stage 4 chronic kidney disease, or unspecified chronic kidney disease; N18.3 Chronic kidney disease, stage 3 (moderate); I50.31 Acute diastolic (congestive) heart failure; E66.01 Morbid (severe) obesity due to excess calories; E03.9 Hypothyroidism, unspecified; E05.90 Thyrotoxicosis, unspecified without thyrotoxic crisis or storm; E78.5 Hyperlipidemia, unspecified; G47.33 Obstructive sleep apnea (adult) (pediatric); K21.9 Gastro-esophageal reflux disease without esophagitis; M19.90 Unspecified osteoarthritis, unspecified site; F41.9 Anxiety disorder, unspecified; F31.9 Bipolar disorder, unspecified; E78.00 Pure hypercholesterolemia, unspecified; Z68.43 Body mass index [BMI] 50.0-59.9, adult; Z85.3 Personal history of malignant neoplasm of breast; Z82.49 Family history of ischemic heart disease and other diseases of the circulatory system
CPT/HCPCS: 36415; 71010; 76770; 78452; 80048; 80061; 80069; 80076; 82550; 83690; 83735; 83880; 84443; 84484; 85018; 85025; 85379; 85610; 85730; 93005; 93017; 93306; 96374; 96375; 99291; A9500; G0378; J1940; J2405; J2785; J3490; 96376; G0379

== ENCOUNTER 2017-03-10 19:51 | Emergency (ER) | payer MEDICARE ==
[~2017-03-10] VITALS: Ht 172.7 cm; Wt 146.5 kg
[~2017-03-10 19:51] MED LIST: ATOR10TA60 PO; DILT240C66 PO; DULO60CA6 PO; LEVO25TA4 PO; LEVO50TA PO; LOSA100T6 PO
[2017-03-10] MEDS ORDERED: cloNIDine HCL 0.1 MG TABLET PO ONE ×2 (22:00→23:00)
--- NOTE | 2017-03-10 22:04 | RAD ---
CT head without intravenous contrast History: Dizziness. Comparison: None. Technique: Axial images are obtained of the head from the skull base through the vertex without IV contrast. Exposure: One or more of the following individualized dose reduction techniques were utilized for this examination: 1. Automated exposure control 2. Adjustment of the mA and/or kV according to patient size 3. Use of iterative reconstruction technique Findings: The ventricles are appropriate in size, shape, and location for the patient's age. No obvious intracranial mass, mass-effect, midline shift, hemorrhage or obvious acute infarction is identified. Basilar cisterns are patent. Bone windows demonstrate no acute calvarial abnormality. The visualized paranasal sinuses appear clear. Impression: No acute intracranial process. Please note that CT can be relatively insensitive to acute ischemic infarction for up to 24 hours after symptom onset. Electronically signed by: Al Mesa MD (03/10/2017 10:01 PM) [facility]
[2017-03-10 22:10] LABS: BILIRUBIN,URINE NEGATIVE (NEG); GLUCOSE,URINE NEGATIVE (NEG); NITRITE,URINE NEGATIVE (NEG); PROTEIN,URINE 100 mg/dL (NEG-TRACE); UROBILINOGEN,URINE 0.2 mg/dL (0.2 mg/dL)
[2017-03-10 22:21] LABS: BACTERIA,URINE MODERATE /HPF (0-FEW); SQUAMOUS EPITHELIAL CELL,UR FEW /LPF
--- NOTE | 2017-03-10 23:10 | PHYS DOC ---
Past Medical History Past Medical History: Arthritis, Asthma, Bipolar, Cancer, COPD, Fibromyalgia, High Cholesterol, Hypertension, Hyperthyroid Additional Past Medical Histor: STAGE III KIDNEY DISEASE, SLEEP APNEA, BREAST CA Past Surgical History: Cholecystectomy, Hysterectomy, Tubal ligation Additional Past Surgical Histo: Right radical mastectomy; thyroid, SIMPLE MASTECTOMY LEFT Alcohol Use: None Drug Use: None Adult General Chief Complaint Chief Complaint: DIZZY/LIGHT HEADED [facility] HPI Patient is a 61 year old female released from the hospital 2 days ago for treatment of hypertension and chest pain who presents with dizziness. Patient had a negative stress test, negative renal ultrasound and echocardiogram while in the hospital. She was resumed on her medications losartan and cardia and instructed to continue antibiotics for treatment of previously diagnosed urinary tract infection. Patient states since discharge she has been compliant with medications. She reports dizziness upon standing today with elevated blood pressure. Patient's d stock blood pressure greater than 220 with diastolic in the 90s. Patient last took her blood pressure medications earlier this morning. She denies any missed doses. Patient denies headache, blurred vision, chest pain , palpitations, shortness of breath, increased leg pain or swelling. Patient does report urinary frequency and urgency and feels as though her urinary tract infection may not have fully resolved. She has completed her antibiotics. No fever chills, nausea, vomiting and sweats. No other acute symptoms or complaints.Patient resides in [facility] with plans to return home tomorrow if feeling improved. Review of Systems Review of Systems ROS as per HPI. Current Medications Current Medications Current Medications Medications (Trade) Dose Ordered Sig/[facility] Start Time Stop Time Status Last Admin Dose Admin Clonidine HCl (Catapres) 0.2 mg 1X ONCE 03/10/17 23:00 03/10/17 23:01 DC Allergies Allergies Allergies Coded Allergies Type Severity Reaction Last Updated Verified Iodinated Contrast- Oral and IV Dye Allergy Intermediate 03/06/17 Yes morphine Allergy Intermediate 03/06/17 Yes Physical Exam Physical Exam Constitutional: Well developed, well nourished, no acute distress, non-toxic appearance. [] HENT: Normocephalic, atraumatic, bilateral external ears normal, oropharynx moist, no oral exudates, nose normal. [] Eyes: PERRLA, EOMI, conjunctiva normal, no discharge. [] Neck: Normal range of motion, no tenderness, supple, no stridor. [] Cardiovascular:Heart rate regular rhythm, no murmur [] Lungs & Thorax: Bilateral breath sounds clear to auscultation [] Abdomen: Bowel sounds normal, soft, no tenderness, no masses, no pulsatile masses. [] Skin: Warm, dry, no erythema, no rash. [] Back: No tenderness, no CVA tenderness. [] Extremities: No tenderness, no cyanosis, no clubbing, ROM intact, no edema. [] Neurologic: Alert and oriented X 3, cranial nerves II through XII grossly intact , normal motor function, normal sensory function, no focal deficits noted. [] Current Patient Data Vital Signs Vital Signs Date Time Temp Pulse Resp B/P (MAP) Pulse Ox O2 Delivery O2 Flow Rate FiO2 03/10/17 22:10 86 21 207/95 (132) 99 Room Air 03/10/17 20:18 98.3 98.3 Lab Values Laboratory Tests Test 03/10/17 21:43 03/10/17 22:00 Glucose (Fingerstick) 90 mg/dL (70-99) Urine Collection Type Unknown Urine Color Yellow Urine Clarity Clear Urine pH 7.0 Urine Specific [place] 1.015 Urine Protein 100 mg/dL (NEG-TRACE) Urine Glucose (UA) Negative mg/dL (NEG) Urine Ketones (Stick) Negative mg/dL (NEG) Urine Blood Negative (NEG) Urine Nitrite Negative (NEG) Urine Bilirubin Negative (NEG) Urine Urobilinogen Dipstick 0.2 mg/dL (0.2 mg/dL) Urine Leukocyte Esterase Small (NEG) Urine RBC 3-5 /HPF (0-2) Urine WBC 11-20 /HPF (0-4) Urine Squamous Epithelial Cells Few /LPF Urine Bacteria Moderate /HPF (0-FEW) Urine Mucus Slight /LPF EKG EKG [EKG: Normal sinus rhythm, no acute ST-T wave changes] Radiology/Procedures Radiology/Procedures [CT head: No acute intercranial process per radiology report.] Course & Med Decision Making Course & Med Decision Making Pertinent Labs and Imaging studies reviewed. (See chart for details) [Patient with dizziness and accelerated hypertension. Patient denies headache. No focal neurologic deficits on exam. Blood pressure improved with clonidine. Recent lab work, echo cardiogram and stress test reviewed. Patient's blood sugar is normal. Findings of residual UTI possibly contributing to blood pressure and dizziness. Patient recommended to continue home blood pressure medication with supplemental clonidine on a when necessary basis. Patient prescribed Cipro and Diflucan for treatment of urinary tract infection with instructions to follow-up with her PCP upon return to [place]. Return precautions reviewed. Patient verbalizes understanding and agreement with treatment plan ] Víctor Disclaimer Dragon Disclaimer This electronic medical record was generated, in whole or in part, using a voice recognition dictation system. Departure Departure Impression: Primary Impression: Accelerated essential hypertension Additional Impression: UTI (urinary tract infection) Disposition: HOME, SELF-CARE Condition: GOOD Patient Instructions: Urinary Tract Infection, [id number], Hypertension, Easy -to-Read Additional Instructions: Please increase fluids and playful course of antibiotics as directed. Take Diflucan 150 mg every 3 days as needed for his symptoms of yeast infection. Take clonidine as needed every 6 hours for systolic blood pressure greater than 200 or diastolic blood pressure greater than 100. Follow-up with your PCP as soon as possible. Return to the ED if new or worsening symptoms. Problem Qualifiers LIAM YUAN DO Mar 10, 2017 23:10
[2017-03-10 23:16] VITALS: BP 151/82
--- NOTE | 2017-03-11 10:11 | EKG ---
[facility] [address] [place] [address] Test Date: 2017-03-10 Test Time: 20:07:34 Pat Name: TRACI JONES Department: Room: Gender: F Rehab Services Aide: : 1955 Requested By: LIAM YUAN Order Number: [id number] Reading MD: Antione Pittman Measurements Intervals [place] Rate: 93 P: 57 SD: 212 QRS: -71 QRSD: 128 T: 66 QT: 394 QTc: 493 Interpretive Statements SINUS RHYTHM VENTRICULAR PREMATURE COMPLEX(ES) PROLONGED SD INTERVAL ABNORMAL LEFT AXIS DEVIATION LEFT ANTERIOR FASCICULAR BLOCK Electronically Signed On 03-16-2017 14:21:35 CDT by Antione Pittman
== END 2017-03-10 23:23 | disposition home or self-care (01) ==
LOC: ER 19:51
DX: I12.9 Hypertensive chronic kidney disease with stage 1 through stage 4 chronic kidney disease, or unspecified chronic kidney disease (principal); N18.3 Chronic kidney disease, stage 3 (moderate); N39.0 Urinary tract infection, site not specified; I10 Essential (primary) hypertension; J44.9 Chronic obstructive pulmonary disease, unspecified; M79.7 Fibromyalgia; E05.90 Thyrotoxicosis, unspecified without thyrotoxic crisis or storm; J45.909 Unspecified asthma, uncomplicated; M19.90 Unspecified osteoarthritis, unspecified site; F31.9 Bipolar disorder, unspecified; E78.00 Pure hypercholesterolemia, unspecified; Z85.3 Personal history of malignant neoplasm of breast; Z90.12 Acquired absence of left breast and nipple; Z90.49 Acquired absence of other specified parts of digestive tract; Z98.51 Tubal ligation status; Z91.041 Radiographic dye allergy status; Z88.5 Allergy status to narcotic agent
CPT/HCPCS: 70450; 81001; 82962; 87086; 87186; 93005; 99285-25